=== PATIENT | male | born 2000 | race Caucasian/White ===

== ENCOUNTER → 2021-05-29 09:49 | Outpatient (BNVA) | payer OTHER, SELFPAY | PROVIDERS: PCP Pediatrics Adolescent Medicine; Visit Provider Physician Assistant Medical | DX: S93.491A Sprain of other ligament of right ankle, initial encounter (principal); V98.8XXA Other specified transport accidents, initial encounter | CPT/HCPCS: 73610; 99203 ==

== ENCOUNTER → 2021-06-01 09:53 | Outpatient (BNVA) | payer OTHER, SELFPAY | PROVIDERS: PCP Pediatrics Adolescent Medicine; Visit Provider Physician Assistant Medical | DX: S93.401A Sprain of unspecified ligament of right ankle, initial encounter (principal); S90.01XA Contusion of right ankle, initial encounter; X58.XXXA Exposure to other specified factors, initial encounter | CPT/HCPCS: 99213 ==

== ENCOUNTER → 2021-06-07 11:00 | Outpatient (BNVA) | payer OTHER, SELFPAY | PROVIDERS: PCP Pediatrics Adolescent Medicine; Visit Provider Physician Assistant Medical | DX: S93.401D Sprain of unspecified ligament of right ankle, subsequent encounter (principal); X58.XXXD Exposure to other specified factors, subsequent encounter | CPT/HCPCS: 99213 ==

== ENCOUNTER → 2021-06-19 14:47 | Outpatient (BNVA) | payer OTHER, SELFPAY | PROVIDERS: PCP Pediatrics Adolescent Medicine; Visit Provider Physician Assistant Medical | DX: S93.491D Sprain of other ligament of right ankle, subsequent encounter (principal); X58.XXXD Exposure to other specified factors, subsequent encounter | CPT/HCPCS: 99213 ==

== ENCOUNTER 2021-06-20 14:00 | Outpatient (RCR) | payer OTHER, SELFPAY ==
--- NOTE | 2021-06-12 17:57 | MHC.PT.EP ---
[facility] [place] Office [place] [facility] [place] [facility] [address] Radha Serrano [address] [phone] F: [phone] F: [phone] F: [phone] F: [phone] Physical Therapy Plan of Care Date of Evaluation: Date of Surgery: N/A Diagnosis: R lateral ankle sprain Assessment: Pt is a motivated 20yo M who presents to PT s/p R lateral ankle sprain on 05/29/21. He presents today with current impairments in pain, decreased ROM, decreased strength, swelling, decreased balance, and gait. He is limited functionally by prolonged standing, ambulation, and stair navigation. His signs and symptoms are consistent with R lateral ankle sprain. He is an excellent candidate for skilled PT services to address current impairments in order to facilitate return to [facility]. He will be seen 2x/week for 4 weeks and will be reassessed at that time. 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 Manual therapy to restore motion and function. Therapeutic exercise to improve strength and flexibility. Neuromuscular re-education for posture and balance. Therapeutic activities to return to functional activities of daily living. Electronically signed by: Shannon Barfield, PT, DPT Please sign and return to therapist. Thank you for your referral.
--- NOTE | 2021-08-06 12:44 | MHC.PT.DC ---
[facility] [place] Office [place] Office [place] Office [address] Radha Serrano [address] [phone] F: [phone] F: [phone] F: [phone] F: [phone] Physical Therapy Discharge Report Diagnosis: R lateral ankle sprain Date of Surgery: N/A Date of Evaluation: 06/12/21 Date of Discharge: 08/06/21 Treatments to Date: 3 Cancellations to Date: 2 No Shows to Date: 1 Discharge Status: Visit Non-compliance Discharge Summary: Pt was seen for PT from 06/12/21-06/20/21. He had attended 3 PT sessions since SOC. He had 2 cancellations and also a no-show for his last scheduled appointment. Pt is being D/C from skilled PT services at this time. Pt current level of function unknown. Electronically signed by: Shannon Barfield, PT, DPT Please sign and return to therapist. Thank you for your referral.
== END 2021-08-06 12:43 | disposition home or self-care (01) ==
LOC: HO.PT 14:00
PROVIDERS: Visit Provider Physician Assistant Medical
DX: S93.401D Sprain of unspecified ligament of right ankle, subsequent encounter (principal)
CPT/HCPCS: 97035; 97110; 97161; 97530